=== PATIENT | female | born 1960 | race Hispanic/Latino ===

== ENCOUNTER 2019-05-29 14:10 | Emergency (ER) | payer SELFPAY ==
[~2019-05-29] VITALS: Ht 157.5 cm; Wt 98.0 kg
--- OUTSIDE RECORDS SUMMARY | 2019-05-29 14:13 | XMS REPORT ---
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 Allergies, Adverse Reactions, Alerts Allergy Name Allergy Type Status Severity Reaction(s) Onset Date Inactive Date Treating Clinician Comments Sulfa (Sulfonamide Antibiotics) DA Active U 2018-12-04 00:00:00 Sulfa (Sulfonamide Antibiotics) DA Active U 2018-07-25 00:00:00 Sulfa (Sulfonamide Antibiotics) DA Active U 2018-07-01 00:00:00 Sulfa (Sulfonamide Antibiotics) DA Active U 2017-05-05 00:00:00 Medications This patient has no known medications. Encounters Start Date/Time End Date/Time Encounter Type Admission Type Attending [facility] Care Department Encounter ID 2019-08-09 00:00:00 2019-08-09 00:00:00 Outpatient [facility] [id number] 2019-06-04 00:00:00 2019-06-04 00:00:00 Outpatient [facility] [id number] 2019-05-07 12:05:29 2019-05-07 12:05:29 Outpatient [facility] [id number] 2019-04-30 11:45:17 2019-04-30 11:45:17 Outpatient [facility] [id number] 2019-04-30 00:00:00 2019-04-30 00:00:00 Outpatient [facility] [id number] 2019-03-15 14:50:56 2019-03-15 14:50:56 Outpatient [facility] [id number] 2019-02-25 08:46:53 2019-02-25 08:46:53 Outpatient [facility] [id number] 2019-02-25 00:00:00 2019-02-25 00:00:00 Outpatient [facility] [id number] 2019-02-22 00:00:00 2019-02-22 00:00:00 Outpatient [facility] [id number] 2019-02-09 09:30:51 2019-02-09 09:30:51 Outpatient [facility] [id number] 2019-02-08 00:00:00 2019-02-08 00:00:00 Outpatient [facility] [id number] 2019-01-12 10:18:10 2019-01-12 10:18:10 Outpatient [facility] [id number] 2019-01-01 10:24:59 2019-01-01 10:24:59 Outpatient [facility] [id number] 2019-01-01 09:54:10 2019-01-01 09:54:10 Outpatient [facility] [id number] 2019-01-01 08:48:10 2019-01-01 08:48:10 Outpatient [facility] [id number] 2019-01-01 08:19:42 2019-01-01 08:19:42 Outpatient [facility] [id number] 2019-01-01 00:00:00 2019-01-01 00:00:00 Outpatient [facility] [id number] 2018-12-30 10:47:19 2018-12-30 10:47:19 Outpatient [facility] [id number] 2018-12-28 10:39:35 2018-12-28 10:39:35 Outpatient [facility] [id number] 2018-12-28 00:00:00 2018-12-28 00:00:00 Outpatient [facility] [id number] 2018-12-23 00:00:00 2018-12-23 00:00:00 Outpatient [facility] [id number] 2018-12-18 15:34:09 2018-12-18 15:34:09 Outpatient [facility] [id number] 2018-12-18 14:03:37 2018-12-18 14:03:37 Outpatient [facility] [id number] 2018-12-18 00:00:00 2018-12-18 00:00:00 Outpatient [facility] [id number] 2018-12-12 10:25:25 2018-12-12 10:25:25 Emergency [facility] [id number] 2018-12-12 07:31:02 2018-12-12 07:31:02 Emergency [facility] [id number] Results Test Description Test Time Test Comments Text Results Atomic Results Result Comments - XR CHEST 1 V 2018-12-04 18:53:00 FAX: Sherri Lozoya DO [place]: St: REG Name: CASI WHITAKER [facility] : 1960 Age/S: 58/F [address] Unit #: [id number] Loc: [place] [address] Phys: Sherri Lozoya DO Acct: [id number] Dis Date: Status: REG ER PHONE #: [phone] Exam Date: 12/04/2018 1850 FAX #: [phone] Reason: dyspnea EXAMS: CPT CODE: [id number] XR CHEST 1 V 26305 REASON FOR EXAM: dyspnea EXAM ORDER DATE: 12/04/2018 6:29 PM Ordering MEmilia: Sherri Lozoya DO PROCEDURE: - XR CHEST 1 V COMPARISON: 05/06/2017 FINDINGS: Portable AP frontal view of the chest obtained at 6:47 PM shows clear lungs without evidence of consolidation. There is no evidence of effusion. The heart size is within normal limits. Pulmonary vasculatures are unremarkable. IMPRESSION: No active disease. at 1853 Reported and signed by: Sudarshan Mckenzie M.D. CC: hSerri Lozoya DO Technologist: TESSIE CHAPMAN Trnscrd Date/Time/By: 12/04/2018 (1852) : By: Kevin Orig Print D/T: S: 12/04/2018 (1855) PAGE 1 Signed Report - CT ABD PELVIS W/CONT 2018-12-04 18:29:00 Name: CASI WHITAKER [facility] : 1960 Age/S: 58 / F [address] Unit #: [id number] Loc: [place] [address] Phys: Sherri Lozoya DO Acct: [id number] Dis Date: Status: REG ER PHONE #: [phone] Exam Date: 12/04/20181822 FAX #: [phone] Reason: abd pain, r/o diverticulitis EXAMS: CPT CODE: [id number] CT ABD PELVIS W/CONT 87511 REASON FOR EXAM: abd pain, r/o diverticulitis EXAM ORDER DATE: 12/04/2018 4:17 PM Ordering MEmilia: Sherri Lozoya DO PROCEDURE: - CT ABD PELVIS W/CONT COMPARISON: FINDINGS: CT images of the abdomen and pelvis were obtained with IV and without oral contrast at 5mm. Dose modulation, iterative reconstruction, and/or weight based adjustment of the MA/KV was utilized to reduce the radiation dose to as low as reasonably achievable. Intravenous contrast: 100cc of Omnipaque 370. The liver, spleen, pancreas are grossly within normal limits. The gallbladder was not seen The kidneys are within normal limits. The urinary bladder is unremarkable. The colon, small bowel, and stomach are within normal limits without evidence of obstruction. The appendix is unremarkable. No evidence of free air or free fluid. The patient is status post hysterectomy IMPRESSION: No acute findings in the abdomen at 1829 Reported and signed by: Sudarshan Mckenzie M.D. CC: Sherri Lozoya DO Technologist:RT VELIA(R) CT CTDI: DLP: Trnscb Date/Time: 12/04/2018 (182) t.SDR.VTL Orig Print D/T: S: 12/04/2018 (1833) PAGE 1 Signed Report URINALYSIS COMPLETE 2018-12-04 18:05:00 UA COLOR (test code=COLU) YELLOW YELLOW UA APPEARANCE (test code=APPU) CLEAR CLEAR UA GLUCOSE DIPSTICK (test code=DGLUU) NEGATIVE mg/dL NEGATIVE UA BILIRUBIN DIPSTICK (test code=BILU) NG NEGATIVE UA KETONE DIPSTICK (test code=KETU) NEG mg/dL NEGATIVE UA SPECIFIC GRAVITY (test code=SGU) 1.015 1.001-1.035 UA BLOOD DIPSTICK (test code=ERI) NEG NEGATIVE UA PH DIPSTICK (test code=KATE) 6.0 5.0-8.0 UA PROTEIN DIPSTICK (test code=PROU) 10 (Trace) mg/dL Neg-15 UA UROBILINIOGEN DIPSTICK (test code=URO) 0.2 mg/dL 0.0-0.2 UA NITRITE DIPSTICK (test code=WANG) NEGATIVE NEGATIVE UA LEUKOCYTE ESTERASE W REFLEX (test code=LEUUR) NEGATIVE NEGATIVE UA WBC (test code=WBCU) 0-5 per HPF 0-5 UA RBC (test code=RBCU) NONE SEEN per HPF 0-5 UA EPITHELIAL CELLS (test code=EPIU) None seen per HPF Few UA BACTERIA (test code=BACU) NONE SEEN per HPF NONE Urine Source? Clean CatchBASIC METABOLIC [id number] 16:55:00* Test Item Value Reference Range Comments SODIUM (test code=NA) 141 mmol/L 136-145 POTASSIUM (test code=K) 3.5 mmol/L 3.5-5.1 CHLORIDE (test code=CL) 108.0 mmol/L 98-107 CARBON DIOXIDE (test code=CO2) 23.0 mmol/L 21-32 ANION GAP (test code=GAP) 13.5 10-20 GLUCOSE (test code=GLU) 190 mg/dL 74-106 BLOOD UREA NITROGEN (test code=BUN) 18 mg/dL 7-18 GLOMERULAR FILTRATION RATE (test code=GFR) > 60 mL/min >=60 Estimated GFR by using Modified MDRD formula.Chronic kidney disease is defined as either kidney damageor GFR <60 mL/min/1.73 m2 for >3 months. CREATININE (test code=CREAT) 0.90 mg/dL 0.55-1.02 Note change in reference range due to change in reagent. BUN/CREATININE RATIO (test code=BUN/CREA) 19.2 10-20 CALCIUM (test code=CA) 9.3 mg/dL 8.5-10.1 HEPATIC FUNCTION [id number] 16:55:00* Test Item Value Reference Range Comments TOTAL PROTEIN (test code=PROT) 8.1 gram/dL 6.4-8.2 ALBUMIN (test code=ALB) 3.3 g/dL 3.4-5.0 GLOBULIN (test code=GLOB) 4.8 gram/dL 2.7-4.2 ALBUMIN/GLOBULIN RATIO (test code=A/G) 0.7 0.75-1.50 BILIRUBIN TOTAL (test code=BILT) 0.30 mg/dL 0.0-1.0 BILIRUBIN DIRECT (test code=BILD) 0.07 mg/dL 0.0-0.20 SGOT/AST (test code=AST) 23 IUnit/L 15-37 SGPT/ALT (test code=ALT) 30 IUnit/L 12-78 ALKALINE PHOSPHATASE TOTAL (test code=ALKP) 97 IUnit/L 45-117 Note change in reference range due to change in reagent. [id number] 16:55:00* Test Item Value Reference Range Comments LIPASE (test code=LIP) 210 U/L 73.0-393.0 [id number] 16:55:00* Test Item Value Reference Range Comments TROPONIN-I (test code=TROPI) <0.015 ng/mL 0-0.045 BASIC METABOLIC [id number] 16:42:00* Test Item Value Reference Range Comments SODIUM (test code=NA) 141 mmol/L 136-145 POTASSIUM (test code=K) 3.5 mmol/L 3.5-5.1 CHLORIDE (test code=CL) 108.0 mmol/L 98-107 CARBON DIOXIDE (test code=CO2) mmol/L 21-32 ANION GAP (test code=GAP) 10-20 GLUCOSE (test code=GLU) mg/dL 74-106 BLOOD UREA NITROGEN (test code=BUN) mg/dL 7-18 GLOMERULAR FILTRATION RATE (test code=GFR) mL/min >=60 CREATININE (test code=CREAT) mg/dL 0.55-1.02 BUN/CREATININE RATIO (test code=BUN/CREA) 10-20 CALCIUM (test code=CA) mg/dL 8.5-10.1 HEPATIC FUNCTION [id number] 16:42:00* Test Item Value Reference Range Comments TOTAL PROTEIN (test code=PROT) gram/dL 6.4-8.2 ALBUMIN (test code=ALB) g/dL 3.4-5.0 GLOBULIN (test code=GLOB) gram/dL 2.7-4.2 ALBUMIN/GLOBULIN RATIO (test code=A/G) 0.75-1.50 BILIRUBIN TOTAL (test code=BILT) mg/dL 0.0-1.0 BILIRUBIN DIRECT (test code=BILD) mg/dL 0.0-0.20 SGOT/AST (test code=AST) IUnit/L 15-37 SGPT/ALT (test code=ALT) IUnit/L 12-78 ALKALINE PHOSPHATASE TOTAL (test code=ALKP) IUnit/L 45-117 [id number] 16:42:00* Test Item Value Reference Range Comments LIPASE (test code=LIP) U/L 73.0-393.0 [id number] 16:42:00* Test Item Value Reference Range Comments TROPONIN-I (test code=TROPI) ng/mL 0-0.045 CBC W/O [id number] 16:18:00* Test Item Value Reference Range Comments WHITE BLOOD CELL (test code=WBC) 6.5 K/mm3 4.5-12.5 RED BLOOD CELL (test code=RBC) 4.46 mill/mm3 3.7-5.2 HEMOGLOBIN (test code=HGB) 12.7 gram/dL 11.5-15.5 HEMATOCRIT (test code=HCT) 38.9 % 36.0-46.0 MEAN CELL VOLUME (test code=MCV) 87.2 fL 80-98 MEAN CELL HGB (test code=MCH) 28.5 picogram 27.0-33.0 MEAN CELL HGB CONCETRATION (test code=MCHC) 32.6 gram/dL 33.0-36.0 RED CELL DISTRIBUTION WIDTH (test code=RDW) 12.8 % 11.6-16.2 PLATELET COUNT (test code=PLT) 213 K/mm3 150-450 MEAN PLATELET VOLUME (test code=MPV) 11.8 fL 6.7-11.0 CBC W/O [id number] 16:14:00* Test Item Value Reference Range Comments WHITE BLOOD CELL (test code=WBC) K/mm3 4.5-12.5 RED BLOOD CELL (test code=RBC) mill/mm3 3.7-5.2 HEMOGLOBIN (test code=HGB) 12.7 gram/dL 11.5-15.5 HEMATOCRIT (test code=HCT) 38.9 % 36.0-46.0 MEAN CELL VOLUME (test code=MCV) fL 80-98 MEAN CELL HGB (test code=MCH) picogram 27.0-33.0 MEAN CELL HGB CONCETRATION (test code=MCHC) gram/dL 33.0-36.0 RED CELL DISTRIBUTION WIDTH (test code=RDW) % 11.6-16.2 PLATELET COUNT (test code=PLT) K/mm3 150-450 MEAN PLATELET VOLUME (test code=MPV) fL 6.7-11.0
[2019-05-29] MEDS ORDERED: ONDANSETRON HCL INJ 2MG/ML 2ML 2 MG/ML VIAL IV STA (15:13)
[2019-05-29] MEDS ORDERED: FAMOTIDINE 20 MG/2 ML VIAL IV STA (15:13)
[2019-05-29] MEDS ORDERED: SODIUM CHLORIDE 0.9% 1000ML 1,000 ML IV SCH (15:15)
[2019-05-29] MEDS ORDERED: ONDANSETRON HCL INJ 2MG/ML 2ML 2 MG/ML VIAL ONE (16:03)
[2019-05-29] MEDS ORDERED: FAMOTIDINE 20 MG/2 ML VIAL IV ONE (16:03)
[2019-05-29] MEDS ORDERED: SODIUM CHLORIDE 0.9% 1000ML 1,000 ML ONE (16:03)
[2019-05-29] MEDS ORDERED: ASPIRIN 81 MG CHEW TAB ONE (16:22)
--- NOTE | 2019-05-29 16:35 | Diagnostic Imaging Report ---
EXAMINATION: PA and lateral views of the chest. COMPARISON: None CLINICAL HISTORY: Chest pain DISCUSSION: Lines/tubes: None. Lungs: The lungs are well inflated and clear. No pneumonia or pulmonary edema. Pleura: No pleural effusion or pneumothorax. Heart and mediastinum: The cardiomediastinal silhouette is normal. Bones and soft tissues: No acute bony abnormalities. IMPRESSION: No acute cardiopulmonary abnormalities. Signed by: Dr. Andre Graves M.D. on 05/29/2019 4:33 PM
--- NOTE | 2019-05-29 16:45 | NUR ---
Called [facility] transfer center for pt per Dr. Bradford for thoracic surgery.
--- NOTE | 2019-05-29 17:08 | NUR ---
Called [facility] to transport pt to medical center and ETA is about an hour.
[2019-05-29] MEDS ORDERED: ASPIRIN 81 MG CHEW TAB PO ONE (17:45)
--- NOTE | 2019-05-29 19:23 | NUR ---
Report to SAMARIA Kimble
== END 2019-05-29 19:05 | disposition short-term general hospital (02) ==
LOC: FSED 14:10
DX: I21.4 Non-ST elevation (NSTEMI) myocardial infarction (principal); I10 Essential (primary) hypertension; E11.65 Type 2 diabetes mellitus with hyperglycemia; Z87.891 Personal history of nicotine dependence; Z79.84 Long term (current) use of oral hypoglycemic drugs
CPT/HCPCS: 71046; 80048; 80076; 81003; 82553; 83880; 84484; 85025; 93005; 96374; 96375; 99284; J2405; J7030